=== PATIENT | female | born 1990 | race African-American/Black ===

== ENCOUNTER 2024-11-30 03:21 | Emergency (ER) | payer MEDICAID ==
[~2024-11-30] VITALS: Ht 162.6 cm; Wt 69.0 kg
[2024-11-30 03:25] VITALS: PULSE 97; RESP 16; O2SAT 100
[2024-11-30 03:34] VITALS: BP 130/82; TEMP 36.8; O2SAT 97
[2024-11-30] MEDS: FLUORESCEIN SODIUM 1MG/STRIP BOTHEYE ONE (04:14)
[2024-11-30] MEDS: TETRACAINE 0.5% OPHTH DROPS 4ML BOTHEYE ONE (04:14)
[2024-11-30] MEDS ORDERED: ERYT1OIN6 EACHEYE (04:33)
== END 2024-11-30 04:44 | disposition home or self-care (01) ==
LOC: ER 03:21
DX: H57.89 Other specified disorders of eye and adnexa (principal); J45.909 Unspecified asthma, uncomplicated; Z91.040 Latex allergy status
CPT/HCPCS: 99283